=== PATIENT | male | born 1980 | race Caucasian/White ===

== ENCOUNTER 2018-07-02 17:54 | Emergency (ER) | payer MEDICAID ==
[~2018-07-02] VITALS: Ht 167.6 cm; Wt 96.6 kg
[2018-07-02 19:50] VITALS: BP 110/75
--- NOTE | 2018-07-02 19:50 | NUR ---
PT BIBSELF C/C ABD PAIN X3 DAYS. PT STATES IT WAS ON THE LEFT SIDE FOR 2 DAYS AND NOW ON THE RIGHT SIDE. PT SLOVAK SPEAKING ONLY. FAMILY AT BEDSIDE. NAD NOTED. RESP EVEN AND UNLABORED. PT ON MONITOR IN BED 11. WILL CONTINUE TO MONITOR.
[2018-07-02] MEDS ORDERED: ONDANSETRON HCL/PF 4 MG/2 ML VIAL IVP ONE (20:30)
[2018-07-02] MEDS ORDERED: MORPHINE SULFATE INJ 2 MG/ML DISP.SYRIN IV ONE (20:30)
[2018-07-02] MEDS ORDERED: IV NS 0.9% 1,000 ML BAG IV ONE (20:30)
[2018-07-02] MEDS ORDERED: ONDANSETRON HCL/PF 4 MG/2 ML VIAL ONE (20:31)
[2018-07-02] MEDS ORDERED: MORPHINE SULFATE INJ 4 MG/ML DISP.SYRIN ONE (20:32)
[2018-07-02 20:34] LABS: BASOPHILS % (AUTO) 0.5 % (0.0-2.0); EOSINOPHILS % (AUTO) 1.5 % (0.0-6.0); HEMATOCRIT 44 % (39-51); HEMOGLOBIN 14.9 g/dL (13.5-17.5); LYMPHOCYTES # (AUTO) 2.1 /CMM (0.8-4.8); LYMPHOCYTES % (AUTO) 30.5 % (20.0-44.0); MEAN CORPUSCULAR HGB CONC 34 g/dl (31.0-36.0); MEAN CORPUSCULAR VOLUME 88 fL (80-96); MONOCYTES # (AUTO) 0.6 /CMM (0.1-1.30); MONOCYTES % (AUTO) 7.8 % (2.0-12.0); NEUTROPHILS # (AUTO) 4.2 /CMM (1.8-8.9); NEUTROPHILS % (AUTO) 59.7 % (43.0-81.0); PLATELET COUNT (AUTO) 207 /CMM (150-450); RED BLOOD CELL COUNT(AUTO) 4.97 MIL/uL (4.5-6.0)
--- NOTE | 2018-07-02 20:40 | NUR ---
URINE COLLECTED AND SENT TO LAB
[2018-07-02 20:43] LABS: CALCIUM, SERUM 9.8 mg/dL (8.5-10.1); POTASSIUM 4.3 mmol/L (3.5-5.1)
--- NOTE | 2018-07-02 20:45 | NUR ---
Patient is resting comfortably in bed with eyes closed. Easily aroused. VSS. FAMILY AT BEDSIDE.
[2018-07-02 20:54] LABS: APPEARANCE,URINE Clear (CLEAR); BILIRUBIN,URINE Negative (NEGATIVE); BLOOD, URINE Negative Ery/uL (NEGATIVE); COLOR,URINE Yellow (YELLOW); KETONES,URINE Trace (NEGATIVE); LEUKOCYTE ESTERASE ,URINE Negative (NEGATIVE); NITRITE, URINE Negative (NEGATIVE); PH,URINE 5.5 (5.0-8.0); PROTEIN,URINE Negative (NEGATIVE); UGLUCOSE >=1000 mg/dL (NEGATIVE); UROBILINOGEN,URINE 0.2 EU/dL (0.2)
[2018-07-02 20:55] LABS: ALBUMIN 4.3 g/dL (3.4-5.0); BILIRUBIN,TOTAL 0.2 mg/dL (0.2-1.0); TOTAL PROTEIN, SERUM 7.8 g/dL (6.4-8.2)
[2018-07-02 20:58] LABS: RBC,URINE 0-2 /HPF (0-2)
[2018-07-02 20:59] LABS: BACTERIA,URINE None seen /HPF (None Seen); SQUAMOUS EPITHELIAL CELL,UR Few /HPF (None Seen); WBC,URINE 0-2 /HPF (0-3)
[2018-07-02] MEDS ORDERED: IBUPROFEN 600 MG TABLET PO ONE ×2 (22:54→23:00)
--- NOTE | 2018-07-02 23:02 | NUR ---
IV removed. Catheter intact and site benign. Pressure and 4x4 applied to site. No bleeding noted.Patient discharged to home in stable condition. Written and verbal after care instructions given. Patient verbalizes understanding of instruction. PT AMBULATORY WITH STEADY GAIT.
[2018-07-03] MEDS ORDERED: FENO145T35 PO (22:37)
[2018-07-03] MEDS ORDERED: SIMV20TA6 PO (22:37)
[2018-07-03] MEDS ORDERED: LISI-607 PO (22:37)
[2018-07-03] MEDS ORDERED: CHOL500052 PO (22:37)
[2018-07-03] MEDS ORDERED: METF-442 PO (22:37)
== END 2018-07-02 23:10 | disposition home or self-care (01) ==
LOC: ER 17:59
DX: K80.50 Calculus of bile duct without cholangitis or cholecystitis without obstruction (principal); E11.9 Type 2 diabetes mellitus without complications; Z90.89 Acquired absence of other organs
CPT/HCPCS: 36415; 76700; 80048; 80076; 81001; 83690; 85025; 85730; 87086; 96374; 96375; 99284; A4606; J2270; J2405; J7030; 81000-TC

== ENCOUNTER 2018-07-03 17:58 | Inpatient (IN) | payer MEDICAID ==
[~2018-07-03] VITALS: Ht 172.7 cm; Wt 97.1 kg
[2018-07-03] MEDS ORDERED: HYDROMORPHONE 1 MG/1 ML DISP.SYRIN IV ONE (19:00)
[2018-07-03] MEDS ORDERED: ONDANSETRON HCL/PF 4 MG/2 ML VIAL IV ONE (19:00)
[2018-07-03] MEDS ORDERED: IV D5/0.45 NACL 1,000 ML IV ONE (19:30)
--- NOTE | 2018-07-03 19:42 | NUR ---
PT IS REFUSING PAIN AND NAUSEA MEDICATION AT THIS TIME. PT SAID "MAYBE LATER". PT'S PAIN IS 7/10
--- NOTE | 2018-07-03 19:56 | NUR ---
SPOKE TO JENARO, ZOOLOGY TEACHER, WHO STATED THAT THE PT WAS CAPITATED TO [facility]. JENARO CAN BE REACHED AT [phone]. JENARO IS GOING TO CALL BACK WITH DR MARYLIN CALVO.
--- NOTE | 2018-07-03 20:05 | NUR ---
Harshal DEE [facility] SPOKE TO GUILLAUME CRAIG FOR DR MORGAN AT [facility]. DR TO DR CALVO COMPLETED.
[2018-07-03] MEDS ORDERED: PIPERACILLIN /TAZOBACTAM 3.375 G VIAL IV ONE (20:14)
[2018-07-03] MEDS ORDERED: PIPERACILLIN /TAZOBACTAM 3.375 G in IV D5W 50 ML IV ONE (20:30)
--- NOTE | 2018-07-03 21:10 | NUR ---
PT ASKED TO BE DISCONNECTED FROM THE MONITOR AND CONTINUOUS PULSE OX AND IVF. PT STATED THAT HE HAD TO GO TO THE BATHROOM. PT AMBULATED TO THE BATHROOM AND ASKED IF HE COULD GO OUTSIDE TO HAVE A CIGARETTE. PT WAS TOLD THAT HE COULD NOT GO OUTSIDE TO SMOKE. PT AMBULATED BACK TO ER BED #13 WITH A STEADY GAIT.
--- NOTE | 2018-07-03 21:29 | NUR ---
CALLING JENARO, HEALTH EDUCATION SPECIALIST FOR [employer]. JENARO WILL SPEAK TO [facility] RE: PT BEING TRANSFERED.
--- NOTE | 2018-07-03 21:55 | NUR ---
PT IS RESTING WITH INTERMITTENT PAIN. PT IS STILL REFUSING PAIN AND NAUSEA MEDICATION AT THIS TIME.
--- NOTE | 2018-07-03 22:13 | NUR ---
CALLING JENARO, MANDARIN SPEAKING NANNY FOR [employer] RE: THE TRANSFER
--- NOTE | 2018-07-03 22:22 | NUR ---
PT IS NOW APPROVED FOR ADMISSION.
--- NOTE | 2018-07-03 22:26 | NUR ---
MS BED 315-1 GIVEN
--- NOTE | 2018-07-03 22:29 | NUR ---
CALLED [facility]. SUPERVISOR MICROFILM DUPLICATING UNIT WAS PAGED. AWAITING CALL BACK
--- NOTE | 2018-07-03 22:33 | NUR ---
DR PERES CALLED. COTTON WEIGHER OPERATOR WAS IN THE MIDDLE OF A PROCEDURE. WILL CALL BACK WHEN COTTON WEIGHER OPERATOR IS FINISHIED
--- NOTE | 2018-07-03 22:34 | NUR ---
CALLING REPORT TO MS NURSE.
[2018-07-03] MEDS ORDERED: LISI-607 PO (22:37)
[2018-07-03] MEDS ORDERED: FENO145T35 PO (22:37)
[2018-07-03] MEDS ORDERED: CHOL500052 PO (22:37)
[2018-07-03] MEDS ORDERED: METF-442 PO (22:37)
[2018-07-03] MEDS ORDERED: SIMV20TA6 PO (22:37)
--- NOTE | 2018-07-03 22:38 | NUR ---
REPORT GIVEN TO CHRISTIANO ANTONIO
--- NOTE | 2018-07-03 22:38 | NUR ---
CALLED DR PERES AND SPOKE TO CUSTOMER PROGRAM SPECIALIST
--- NOTE | 2018-07-03 22:54 | NUR ---
PT IS GOING TO [facility] [employer]
[2018-07-03 23:05] VITALS: BP 134/81
[2018-07-03 23:40] VITALS: BP 131/84
--- NOTE | 2018-07-03 23:45 | NUR ---
RECIEVED FROM THE ER ALERT AND ORIENTATED SPKS AND ONLY UNDERSTANDS GREEK SISTERANNE HERE AT THE BEDSIDE TO ITERPRET FOR HIM STATES NO PAIN AT THIS TIME NPO
[2018-07-04] MEDS ORDERED: ZOLPIDEM TARTRATE 5 MG TABLET PO PRN (00:30)
[2018-07-04] MEDS ORDERED: DEXTROSE 50%-WATER 50 ML DISP.SYRIN IV PRN (00:30)
[2018-07-04] MEDS ORDERED: IV 1/2NS 1000 ML 1,000 ML IV PRN (00:30)
[2018-07-04] MEDS ORDERED: HYDROMORPHONE 1 MG/1 ML DISP.SYRIN IV PRN (00:30)
[2018-07-04] MEDS ORDERED: INSULIN REGULAR, HUMAN 100 UNIT/ML 3 ML VIAL SQ PRN (00:30)
[2018-07-04] MEDS ORDERED: ACETAMINOPHEN 325 MG TABLET PO PRN (00:30)
[2018-07-04] MEDS ORDERED: ONDANSETRON HCL/PF 4 MG/2 ML VIAL IV PRN (00:30)
--- NOTE | 2018-07-04 02:21 | NUR ---
MS/RN ASSUMED CARE FOR CONTINUITY OF CARE. PATIENT AWAKE, ALERT, ORIENTED, COMFORTABLE, NO C/O AT THIS TIME, NO SIGNS OF DISTRESS, IVF INFUSING WELL, NPO STATUS, CALL LIGHT IN REACH. WILL MONITOR.
[2018-07-04] MEDS ORDERED: PIPERACILLIN /TAZOBACTAM 3.375 G in IV D5W 50 ML IV ONE ×2 (02:30→09:00)
[2018-07-04] MEDS ORDERED: PIPERACILLIN /TAZOBACTAM 3.375 G VIAL IV ONE (02:55)
[2018-07-04] MEDS: BLOOD SUGAR DIAGNOSTIC 1 EACH STRIP IN SCH ×2 (06:08→12:00)
--- NOTE | 2018-07-04 06:09 | NUR ---
MS/RN PATIENT IS AWAKE, ALERT, ORIENTED, COMFORTABLE, NO C/O PAIN, NO DISTRESS NOTED, ALL NEEDS ATTENDED AT THIS TIME, WILL CONTINUE TO MONITOR.
--- NOTE | 2018-07-04 07:30 | NUR ---
m/s speaker wirer: initial assessment received pt in bed awake, a/ox4; hong konger speaking with little mohawk. still has some discomfort to abdomen, but tolerable. pt remains npo. instructed to call for assistance. will continue to monitor.
[2018-07-04 07:50] LABS: BASOPHILS % (AUTO) 0.7 % (0.0-2.0); EOSINOPHILS % (AUTO) 2.2 % (0.0-6.0); HEMATOCRIT 40 % (39-51); HEMOGLOBIN 13.7 g/dL (13.5-17.5); LYMPHOCYTES # (AUTO) 2.3 /CMM (0.8-4.8); LYMPHOCYTES % (AUTO) 43.6 % (20.0-44.0); MEAN CORPUSCULAR HGB CONC 35 g/dl (31.0-36.0); MEAN CORPUSCULAR VOLUME 86 fL (80-96); MONOCYTES # (AUTO) 0.5 /CMM (0.1-1.30); MONOCYTES % (AUTO) 8.9 % (2.0-12.0); NEUTROPHILS # (AUTO) 2.3 /CMM (1.8-8.9); NEUTROPHILS % (AUTO) 44.6 % (43.0-81.0); PLATELET COUNT (AUTO) 180 /CMM (150-450); RED BLOOD CELL COUNT(AUTO) 4.58 MIL/uL (4.5-6.0); WHITE BLOOD COUNT (AUTO) 5.3 K/uL (4.3-11.0)
[2018-07-04 07:56] LABS: ALBUMIN 3.7 g/dL (3.4-5.0); BILIRUBIN,TOTAL 0.4 mg/dL (0.2-1.0); CREATININE 0.9 mg/dL (0.6-1.3); POTASSIUM 4.3 mmol/L (3.5-5.1); TOTAL PROTEIN, SERUM 6.9 g/dL (6.4-8.2)
[2018-07-04 08:00] VITALS: BP 124/88
--- NOTE | 2018-07-04 08:15 | NUR ---
m/s home delivery driver: notes pt remains npo, pt for hida scan. chloe (nuclear med tech) at bedside. spoke to mirtha (family) and informed her and translated to pt and pt verbalized understanding and consent obtained for hida scan this morning. will continue to monitor.
--- NOTE | 2018-07-04 09:00 | NUR ---
M/S CHAIR TRIMMER: MD VISIT SEEN AND EXAMINED BY DR. PERES WITH ORDERS. ORDERS ACKNOWLEDGED.
[2018-07-04] MEDS ORDERED: NICOTINE PATCH (21MG) 21 MG PATCH.TD24 TD SCH (09:30)
[2018-07-04] MEDS ORDERED: PANTOPRAZOLE 40 MG VIAL IV SCH (09:30)
--- NOTE | 2018-07-04 10:00 | NUR ---
M/S NOUGAT CUTTER MACHINE: SURGEON F/U SEEN AND EXAMINED BY DR. MADRIGAL AND UPDATED PLAN OF CARE. PT REMAINS NPO. WILL CONTINUE TO MONITOR.
--- NOTE | 2018-07-04 11:35 | NUR ---
m/s radiology resident: notes chloe (nuclear med tech) picked up pt and brought him down via w/c for hida scan at this time with .
[2018-07-04 12:00] VITALS: BP 132/69
--- NOTE | 2018-07-04 13:05 | NUR ---
m/s rn occupational health: notes pt back from hida scan with at bedside. instructed to call for assistance. remains npo, but pt wants to eat. will continue to monitor.
--- NOTE | 2018-07-04 13:40 | NUR ---
m/s servicer travel trailers: notes pt wants to eat and wants me to call dr. paiz. pt denies any abdominal discomfort. pt says he feels good, just hungry. hida scan result pending and pt aware. dr. paiz notified and made aware with order to start pt on clear liquid diet. order carried out and acknowledged. pt made aware. kitchen notified.
--- NOTE | 2018-07-04 13:50 | NUR ---
m/s cloth grader: notes clear liquid diet served. instructed to call for assistance. will continue to monitor. remains at bedside.
--- NOTE | 2018-07-04 14:00 | NUR ---
m/s environmental air specialist: notes hida scan resulted which is negative. dr. paiz notified via exchange. also dr. hightower notified via exchange. will continue to monitor.
--- NOTE | 2018-07-04 14:30 | NUR ---
m/s land developer: notes dr. paiz called back and will not do any surgery, but wants dr. harris to be called for consult and for egd. pt made aware with sister in law translating over the phone re: plan of care. still awaiting for dr. hightower to call back. case management also on the case and following up with insurance and hospitalist. cn aware.
[2018-07-04] MEDS ORDERED: PIPERACILLIN /TAZOBACTAM 3.375 G in IV D5W 100 ML IV SCH (15:00)
--- NOTE | 2018-07-04 15:30 | NUR ---
m/s senior engineering specialist: notes dr. hightower called back and informed md that pt hida scan is negative and per case management, got in touch or got a hold of dr. harris and per gi not planning to do egd with order to discharge pt home, continue home medications and no need for antibiotic prescription, and needs outpatient follow up with stove bottom worker for egd procedure. order read back and carried out and acknowledged. also dr. hightower ask me to transfer the call to case management, call transferred. cn made aware.
[2018-07-04 16:00] VITALS: BP 120/81
--- NOTE | 2018-07-04 16:25 | NUR ---
m/s nursing home aide: notes discharge instructions given to pt and wes ([id number]) translating. pt and family verbalized understanding. h/l removed with tip intact with no bleeding, no redness, and no swelling noted.
--- NOTE | 2018-07-04 16:30 | NUR ---
m/s supervisor sleeping bag department: discharged discharge home in stable condition with all d'c papers and belongings via private car.
== END 2018-07-04 16:30 | disposition home or self-care (01) ==
LOC: ER 18:06 → MED 22:34
PROVIDERS: ADMIT Internal Medicine; ATTEND Internal Medicine
DX: K80.20 Calculus of gallbladder without cholecystitis without obstruction (principal); E11.9 Type 2 diabetes mellitus without complications; E78.5 Hyperlipidemia, unspecified; I10 Essential (primary) hypertension; F17.210 Nicotine dependence, cigarettes, uncomplicated; K21.9 Gastro-esophageal reflux disease without esophagitis; Z79.84 Long term (current) use of oral hypoglycemic drugs
CPT/HCPCS: 36415; 78226; 80053-TC; 82962-TC; 85025-TC; 87081-TC; A9537; C9113; G0378; J1815; J2543; J3490; J7060